=== PATIENT | female | born 1950 | race Caucasian/White ===

== ENCOUNTER 2021-05-21 17:12 | Emergency (ER) | payer OTHER ==
[~2021-05-21] VITALS: Ht 175.3 cm; Wt 61.7 kg
[2021-05-22 05:04] VITALS: BP 149/82
== END 2021-05-22 05:05 ==
LOC: ER 17:12
PROVIDERS: Nurse Practitioner
DX: U07.1 COVID-19 (principal); F91.9 Conduct disorder, unspecified